=== PATIENT | male | born 1975 | race Caucasian/White ===

== ENCOUNTER 2022-01-26 07:02 | Emergency (ER) | payer SELFPAY ==
[~2022-01-26] VITALS: Ht 175.3 cm; Wt 81.8 kg
[2022-01-26] MEDS ORDERED: IBUPROFEN 600 MG TABLET PO ONE (07:30)
[2022-01-26] MEDS ORDERED: DEXAMETHASONE SOD PHOS 4 MG/ML 5 ML VIAL IM ONE (07:30)
[2022-01-26 07:36] LABS: COVID AG,FIA SOURCE NASOPHARYNGEAL
[2022-01-26 08:24] VITALS: BP 165/103
== END 2022-01-26 08:42 | disposition home or self-care (01) ==
LOC: EMS 07:02
DX: U07.1 COVID-19 (principal); J02.9 Acute pharyngitis, unspecified; R03.0 Elevated blood-pressure reading, without diagnosis of hypertension
CPT/HCPCS: 87426; 87430; 96372; 99283; J1100